=== PATIENT | male | born 1945 | race African-American/Black ===

== ENCOUNTER 2025-08-06 10:01 | Outpatient (OUT) | payer MEDICARE, SELFPAY ==
--- OUTSIDE RECORDS SUMMARY | 2024-11-10 05:45 | XMS_ITS ---
Author Organization [facility] vices Address [address] [place] [id number] Care Team Providers Care Applications Manager Name Role Phone Donald Safia Unavailable [phone] REASON FOR VISIT Recall (A) (78) Social History Sex Assigned At : Social History Observation Description Sex Assigned At Male Encounters Encounter Location Date Provider Diagnosis [facility] [address] [place] [phone] 11/10/2024 Safia Bennett Plan Of Treatment No Information Progress Notes * Paco MACKDOB:1945 (80 yo M)Acc No.[id number]:11/10/2024 Dental Note Patient: Paco BURKS :?Safia Bennett DDSDOB:1945???Age:79 Y ???Sex:MaleDate:11/10/2024Phone:[phone]:[address] [place], [place] [id number] Subjective: * Chief Complaints: * 1 . Recall (A) (78). * Medical History: Objective: * Vitals: Assessment: Plan: * Treatment: * Billing Information: * Visit Code: * Procedure Codes: * Electronic signature of Safia Bennett DDS on 08/06/2025 at 10:06 AM EST Sign off status: Pending * Provider: Ari Bennett DDS Date: 0 11/10/2024 Generated for Printing/Faxing/eTransmitting on:?08/06/2025 10:06 AM EST
--- OUTSIDE RECORDS SUMMARY | 2025-05-14 03:45 | XMS_ITS ---
Author Organization [facility] vices Address [address] [place] [phone] Care Team Providers Care Sieve Grader Tender Name Role Phone Donald Safia Unavailable [phone] REASON FOR VISIT Recall (A) (78) Social History Sex Assigned At : Social History Observation Description Sex Assigned At Male Encounters Encounter Location Date Provider Diagnosis [facility] [address] [place], [place] [phone] 05/14/2025 Safia Bennett Plan Of Treatment No Information Progress Notes * Paco MACKDOB:1945 (80 yo M)Acc No.[id number]:05/14/2025 Patient:Paco TRAN :?Safia Bennett DDSDOB:1945???Age:79 Y ???Sex:MaleDate:05/14/2025Phone:[phone]:[address] [place], [place] [id number] Subjective: * Chief Complaints: * 1 . Recall (A) (78). * Medical History: Objective: * Vitals: Assessment: Plan: * Treatment: * Billing Information: * Visit Code: * Procedure Codes: * Electronic signature of Safia Bennett DDS on 08/06/2025 at 10:06 AM EST Sign off status: Pending * Provider: Ari Bennett DDS Date: 0 05/14/2025 Generated for Printing/Faxing/eTransmitting on:?08/06/2025 10:06 AM EST
--- OUTSIDE RECORDS SUMMARY | 2025-08-06 10:06 | XMS_ITS | Patient Health Record ---
Author Organization [facility] Address [address] [place] [phone] Care Team Providers Care Camp Boss Name Role Phone Safia Bennett Unavailable [phone] Allergies Allergen (clinical drug ingredient) Drug/Non Drug Allergy documented on EMR Reaction Allergy Type Onset Date Status seasonal (uncoded)UnknownAllergyActive Reason For Referral No Information Medications Medication SIG (Take, Route, Frequency, Duration) Notes Start Date End Date Status Jardiance ActiveIbuprofenNot-TakingEdarbyclor 40-12.5 MG1 tablet Orally Once a day Not-TakingMontelukast SodiumActiveamLODIPine BesylateActiveRybelsusActive FamotidineNot-TakingLevothyroxine SodiumNot-TakingAtorvastatin CalciumActive SynthroidActiveAzelastine HClNot-TakingmetFORMIN HClNot-TakingBystolicActive RamiprilNot-TakingNebivolol HClNot-Taking Social History Tobacco Use: Social History Observation Description Date Details (start date - stop date) Never Smoker NA - NA Sex Assigned At : Social History Observation Description Sex Assigned At Male Tobacco Control (Standard) Question Answer Notes Tobacco use: Nonsmoker Vital Signs Heart Rate 76 /min 11/05/2024 Blood pressure xwjmnxtfa32 mm Hg11/05/2024Weight-kg108.86 kg11/05/20241368Dcwvrl91 in11/05/2024lood pressure vyhovlob788 mm Hg11/05/20244692Xkrubw839 lbs11/05/2024MI 36.49 kg/m211/05/2024 Encounters Encounter Location Date Provider Diagnosis [facility] [address] [place], [place] [phone] 10/22/2024 Safia Donald [facility] K 02.62 [facility] [address] [place], [place] [phone] 11/05/2024 Safia Bennett Encounter for dent al examination and cleaning with abnormal findings Z01.21 Assessments Encounter Date Diagnosis (ICD Code) Assessment Notes Treatment Notes Treatment Clinical Notes Section Notes 10/22/2024 [facility] dentin (ICD-10 - K02.6 2) 11/05/2024Encounter for dental examination and cleaning with abnormal findings (ICD-10 - Z01.21) Plan Of Treatment No Information Insurance Providers Payer Name Payer Address Payer Phone Subscriber Number Group Number Insured Name Patient Relationship to Insured Coverage Start Date Coverage End Date [place]et[place] [address] [address] [place] [address] [id number] Ivory Callahan Spouse - patient is the spouse of the insured
--- OUTSIDE RECORDS SUMMARY | 2025-08-06 10:06 | XMS_ITS | Clinical Summary ---
Author Organization [facility] Address [address] [place] [address] Care Team Providers Care Port Traffic Manager Name Role Phone Unavailable Primary Care Provider Unavailabl e Allergies No known active allergies Medications MedicationSigDispense QuantityRefillsLast FilledStart DateEnd DateStatus amLODIPine-olmesartan (Kana) 5-40 MG tablet Take 1 tablet by mouth Daily5Active atorvastatin (Lipitor) 20 MG tablet Take 20 mg by mouth Daily08/24/2024ctive Jardiance 25 MG Take 25 mg by mouth Daily09/16/2024ctive levothyroxine (Synthroid, Levoxyl) 175 MCG tablet Take 175 mcg by mouth DailyActive montelukast (Singulair) 10 MG tablet 09/18/2024ctive nebivolol (Bystolic) 20 MG tablet Take 20 mg by mouth DailyActive semaglutide (Rybelsus) 7 MG tablet RybelsusActive methylPREDNISolone (Medrol Dospak) 4 MG tablets Indications:Hallux rigidus of right footTake as directed on package. 21 tablet 5Active meloxicam (Mobic) 15 MG tablet Indications:Hallux rigidus of left foot,Arthralgia of left footTAKE 1 TABLET(15 MG) BY MOUTH DAILY 90 tablet 5Active Family History RelationNameStatusCommentsFatherDeceasedMotherDeceased Social History Tobacco UseTypesPacks/DayYears UsedDateSmoking Tobacco: Never Tobacco Cessation:Counseling Given: Not Answered Alcohol UseStandard Drinks/WeekCommentsNever0 (1 standard drink = 0.6 oz pure alcohol)Sex and Gender InformationValueDate RecordedSex Assigned at BirthMale 10/31/2024 2:08 PM ESTLegal PyaCutm2810/21/2024 10:42 AM ESTGender IdentityMale 10/31/2024 2:08 PM ESTSexual OrientationNot on file Last Filed Vital Signs Vital SignReadingTime TakenCommentsBlood Pressure--Pulse--Temperature-- Respiratory Rate--Oxygen Saturation--Inhaled Oxygen Concentration--Mlkbmt879 kg (230 lb)12/01/2024 9:52 AM OKVTrrdvj441.7 cm (5' 8 )12/01/2024 9:52 AM ESTBody Mass Index34.9712/01/2024 9:52 AM EST Plan of Treatment Health MaintenanceDue DateLast DoneCommentsPneumococcal Vaccine: 65+ Years (1 of 1 - PCV)1996COVID-19 Vaccine (2024- season), 06/21/2022, 01/02/2022, Additional history existsInfluenza Vaccine (#1) 06/01/2025 Insurance
--- NOTE | 2025-08-06 11:06 | PM.CN ---
Consult Note: HPI Data of Consult Patient: new to practice Consult date: 08/06/25 Requesting Physician: Varsha Noland NP Primary Care Provider: PRATIBHA DEUTSCH DO Consult Narrative Reason for consult: left hip OA Narrative: Paco Callahan a pleasant 80 year old male presents for evaluation of left hip OA. Patient noticing pain worsening over the last 1 year, especially while golfing. denies falls or injury. notes pain 2/10 at the moment but up to 9/10 with standing, walking, stairs, lifting, and golfing. Denies loss of bowel or bladder. denies numbness tingling weakness. pt has failed > 6 weeks of provider guided HEP from PCP, heat, ice, tylenol, celebrex, motrin. recent left hip xray reveals moderate OA and he is not interested in joint replacement surgery. cc:: CC: Varsha Noland NP Review of Systems ROS Musculoskeletal Reports: joint pain Exam Narrative Exam Narrative: elevated BP, denies headache chest pain nausea shortness of breath dizziness lightheadedness Constitutional Documenting provider has reviewed patient's vital signs: yes Common normals: no apparent distress, oriented x3 and alert General appearance: cooperative HENMT Common normals: normocephalic, hearing grossly normal bilaterally and moist oral mucous membranes Head and scalp: normocephalic Eye Common normals: PERRL Pupil: PERRL Neck & C-Spine Common normals: full ROM General: normal visual inspection Chest Common normals: inspection of chest normal Respiratory Common normals: normal respiratory effort, no retractions and no use of accessory muscles Back & Pelvis Lumbar spine/lower back: straight leg raise negative bilaterally; ROM not limited, no pain with ROM and no lumbar spinal tenderness Extremity Left lower extremity: hip joint Other: left hip moderate to severe pain with internal/external rotation strength 5/5 in BLE sensation intact BLE Neuro Common normals: oriented x3 Sensorium/orientation: alert Psych Common normals: mental status grossly normal, thought process normal, cooperative, affect normal, speech normal and activity/motor behavior normal Speech: normal speech Thought process: normal thought process Results Additional Findings Additional findings: If on a controlled substance or opioids, I have checked an [place]AR[place] report on this patient and there are no aberrancies noted in the prescribing history.??If on a controlled substance or opioid a drug screen was completed and reviewed within the last year, and if there has not been a drug screen completed we ordered one today to monitor higher risk, state monitored pain medication use. As part of providing excellent, safe, comprehensive care, the following was completed at our patient's visit: 1. A medication reconciliation and review to ensure accurate knowledge of current/active medications, including asking our patients to inform us about any zcxq-wzq-kouoivx medications or herbal remedies/nutritional supplements/alternative remedies. 2. A review to specifically ensure our patients have had annual screening for screening for depression, screening for tobacco use, and screening for unhealthy alcohol use. For concerning screenings had a discussion with the patient, provided patient education, and recommended follow-up with primary care provider when appropriate. If patient noted with a risk of falling, they received education on strength, gait, and balance training to prevent future risk of falling. Portions of this note may have been carried over from the previous visit and updated as appropriate. Please note this office utilizes paper charting in addition to the electronic medical record. A list of current medications, vitals, and PMH is available there as the clinical staff outside of myself do not have access to Home Inventory S[pecialists charting during the clinic day operations. As part of providing quality comprehensive care the current medications, vitals, and PMH were reviewed in the paper chart. Assessment and Plan Assessment and Plan (1) Osteoarthritis of left hip: (2) Left hip pain: Plan The patient has had over 3 months of moderate to severe left hip pain with functional impairment and inadequate response to conservative care including NSAIDS (unless there are contraindication such as concurrent blood thinners), multiple oral or topical pain medications, and home exercise program/physical therapy.? Patient has completed >6 weeks of guided home exercise program and/or formal physical therapy program without relief of their symptoms.? The Oswestry Disability Index was completed, and the patient scored a 11%.? proceed with left hip injection under fluoroscopy, risks vs benefits reviewed pt not finding benefit to celebrex, advised to stop due to shelter nsaid use risks and discuss further with PCP at this time defer additional medication management, can consider alternatives if patient fails to benefit from injection f/u 2 weeks after injection
== END 2025-08-06 10:02 | disposition home or self-care (01) ==
LOC: PM 10:03
PROVIDERS: PCP Internal Medicine; Visit Provider Nurse Practitioner
DX: M16.12 Unilateral primary osteoarthritis, left hip (principal); M25.552 Pain in left hip
CPT/HCPCS: G0463

== ENCOUNTER 2025-08-17 07:12 | Day surgery (SDC) | payer MEDICARE, SELFPAY ==
--- OUTSIDE RECORDS SUMMARY | 2025-08-17 07:17 | XMS_ITS | Clinical Summary ---
Author Organization [id number] [address] [place] [address] Care Team Providers Care Registered Radiographer Name Role Phone Flakita Carmona DO, Charles L Primary Care Provider Allergies No known active allergies Medications MedicationSigDispense QuantityRefillsLast FilledStart DateEnd DateStatus nebivolol (BYSTOLIC) 20 mg tablet Take 1 tablet (20 mg total) by mouth in the morning.Active metFORMIN (GLUCOPHAGE) 500 mg tablet Take 1 tablet (500 mg total) by mouth in the morning and 1 tablet (500 mg total) in the evening. Take with meals.Active levothyroxine (SYNTHROID, LEVOTHROID) 175 MCG tablet Take 1 tablet (175 mcg total) by mouth in the morning. 5 x week .Active aspirin 81 mg Take 1 tablet (81 mg total) by mouth in the morning.Active JARDIANCE 25 mg tablet tablet Take 0.5 tablets (12.5 mg total) by mouth in the morning.05/15/2023ctive montelukast (SINGULAIR) 10 mg tablet Take 1 tablet (10 mg total) by mouth nightly as needed.06/11/2023ctive famotidine (PEPCID) 40 mg tablet Take 1 tablet (40 mg total) by mouth nightly as needed for heartburn.06/11/2023 Active amLODIPine-olmesartan (JESSICA) 5-40 mg per tablet Take 1 tablet by mouth in the morning.08/20/2023ctive atorvastatin (LIPITOR) 20 mg tablet Take 1 tablet (20 mg total) by mouth in the morning.08/31/2023ctive TRELEGY ELLIPTA 200-62.5-25 mcg blister with device Inhale 1 puff as needed.09/14/2023ctive Active Problems No known active problems Immunizations ImmunizationAdministration DatesNext SwkZpxx7204/28/2018 Family History Medical HistoryRelationNameCommentsCirrhosisFatherof liverHeart attackMother Heart diseaseMotherRelationNameStatusCommentsFatherDeceasedMotherDeceased Social History Tobacco UseTypesPacks/DayYears UsedDateSmoking Tobacco: FormerCigarettesQuit: 1980Smokeless Tobacco: Never Tobacco Cessation:Counseling Given: Not Answered Comments:Social Smoker Alcohol UseStandard Drinks/WeekCommentsNot Currently0 (1 standard drink = 0.6 oz pure alcohol)ChildcareAnswerDate OsuonacuPnsezoldoYftvryp63/12/2019Employment AnswerDate GnhogaodVjeufhsyttNqppysk86/12/2019Hunger ScreeningAnswerDate RecordedWithin the past 12 months we worried whether our food would run out before we got money to buy more.Never True07/10/2023Food Insecurity - Inability Not on file07/10/2023urpose - LifeAnswerDate RecordedPurpose and direction in bbdeIbzdsim38/11/2021ex and Gender InformationValueDate RecordedSex Assigned at BirthNot on fileLegal XsvYuuh7405/06/2015 11:39 AM EDTGender IdentityNot on file Sexual OrientationNot on file Last Filed Vital Signs Vital SignReadingTime TakenCommentsBlood Zztrwmyi72/80011/12/2023 10:25 AM EST Ahpsd573011/12/2023 10:25 AM NTZZmatlabhauy69.2 ??C (98.9 ??F)11/12/2023 8:13 AM ESTRespiratory Yaht719811/12/2023 10:25 AM ESTOxygen Mslwkbptrt78%11/12/2023 10:25 AM ESTInhaled Oxygen Concentration--Jhcmcq069.5 kg (237 lb)11/12/2023 8:13 AM QZASeqfwm680.7 cm (5' 8 )11/12/2023 8:13 AM ESTBody Mass Index36.04011/12/2023 8:13 AM EST Plan of Treatment Health MaintenanceDue DateLast DoneCommentsDepression Ompktfouf49/13/1958Fall Risk Anuukdwlf73/13/2011RSV ( or age 60+ yrs) (1 - 1-dose 75+ series) 2021Tobacco Avgggnoyb96OVID-19 Vaccine (2024- season), 06/21/2022, 01/02/2022, Additional history exists Influenza Dmzvebr1406/01/2025DTaP,Tdap and Td Vaccines (2 - Td or Tdap)04/28/2028 04/28/20186666Nubpxriuktg57, 11/12/2023, 11/12/2023Zoster (Shingles) FzphxuiUvuchpaag81/04/2021, 03/01/2021 Medical Devices Not on file Procedures Procedure NamePriorityDate/TimeAssociated DiagnosisCommentsPROVATION COLONOSCOPY Objkjkd3411/12/2023 8:57 AM EST from Last 3 Months or Most Recently Relevant to Health Maintenance Results * Colonoscopy Report (11/12/2023 8:57 AM EST)Specimen (Source)Anatomical Location / LateralityCollection Method / VolumeCollection TimeReceived Time Narrative SYSTEMGENERATED, DOCUMENTATION - 11/12/2023 8:57 AM EST This order has been auto-finalized for image and report archival in PACs. *For full report details, please reach out to your physician. ??This image is visible to you in MyChart.* Authorizing ProviderResult TypeResult StatusMichael E Grillis DOIMG OR IMG ORDERABLESFinal Result from Last 3 Months or Most Recently Relevant to Health Maintenance Insurance * Guarantor: Paco Callahanccmoisés TypeRelation to PatientDate of PhoneBilroane general hospital AddressWorkers WpehQhqc[address] [place] [id number] Care Teams Team MemberRelationshipSpecialtyStart DateEnd Date Abiel Boggs Jr., [address] [place] [id number] PCP - GeneralInternal Medicine04/28/18
--- OUTSIDE RECORDS SUMMARY | 2025-08-17 07:17 | XMS_ITS | Clinical Summary ---
Author Organization [facility] Address [address] [place] [address] Care Team Providers Care Diesel Powerplant Mechanic Name Role Phone Unavailable Primary Care Provider Unavailabl e Social History Tobacco UseTypesPacks/DayYears UsedDateSmoking Tobacco: Never AssessedSex and Gender InformationValueDate RecordedSex Assigned at BirthNot on fileLegal Sex Male11/03/2012 11:56 AM ESTGender IdentityNot on fileSexual OrientationNot on file Plan of Treatment Health MaintenanceDue DateLast DoneCommentsHEPATITIS C VIRUS MSEDOQNVM1945 ZCUOKQA90 1945TDAP (ADULT)1965COLORECTAL CANCER SCREENING DISCUSSION 1991PNEUMOCOCCAL VACCINE SERIES (1 of 1 - PCV)1996ZOSTER (SHINGLES) VACCINE (1 of 2)1996RSV VACCINE (1 - 1-dose 75+ series)2021OVID-19 VACCINE ( - 2024- season)2025INFLUENZA VACCINE (#1)2025HEP B VACCINEAged OutNo longer eligible based on patient's age to complete this topic
--- OUTSIDE RECORDS SUMMARY | 2025-08-17 07:17 | XMS_ITS | Clinical Summary ---
Author Organization [facility] Address [address] [place] [address] Care Team Providers Care Marquetry Worker Name Role Phone Unavailable Primary Care Provider [...] Assigned at BirthMale 10/31/2024 2:08 PM ESTLegal UytDhxz2410/21/2024 10:42 AM ESTGender IdentityMale 10/31/2024 2:08 PM ESTSexual OrientationNot on file Last Filed Vital Signs Vital SignReadingTime TakenCommentsBlood Pressure--Pulse--Temperature-- Respiratory Rate--Oxygen Saturation--Inhaled Oxygen Concentration--Shoetx555 kg (230 lb)12/01/2024 9:52 AM YDZVcabhi939.7 cm (5' 8 )12/01/2024 9:52 AM ESTBody Mass Index34.9712/01/2024 9:52 AM EST Plan of Treatment Health MaintenanceDue DateLast DoneCommentsPneumococcal Vaccine: 65+ Years (1 of 1 - PCV)1996COVID-19 Vaccine (2024- season), 06/21/2022, 01/02/2022, Additional history existsInfluenza Vaccine (#1) 06/01/2025 Insurance
--- OUTSIDE RECORDS SUMMARY | 2025-08-17 07:17 | XMS_ITS | Clinical Summary ---
Author Organization [facility] Address [address] [place] [address] Care Team Providers Care Battery Engineer Name Role Phone Flakita Carmona DO, Charles Lewis Primary Care Provi cameron Allergies No known active allergies Medications MedicationSigDispense QuantityRefillsLast FilledStart DateEnd DateStatus ramipril (ALTACE) 10 mg capsule 20 mg once daily.12/31/2014ctive metFORMIN (GLUCOPHAGE) 500 mg tablet Take 500 mg by mouth twice daily with meals.Active levothyroxine (SYNTHROID) 175 mcg tablet Take 175 mcg by mouth. Daily mon-friActive aspirin, enteric coated (ASPIRIN, ENTERIC COATED) 81 mg EC tablet Take 81 mg by mouth once daily.Active amLODIPine-Atorvastatin (CADUET) 10-20 mg per tablet Take 1 tablet by mouth once daily.Active nebivolol (BYSTOLIC) 20 mg tab Indications:History of prostate cancerTake by mouth once daily.Active CHOLECALCIFEROL, VITAMIN D3, (VITAMIN D3 ORAL) Indications:History of prostate cancerTake by mouth.Active Active Problems ProblemNoted DateDiagnosed DateHistory of prostate yagduj3003/17/2015 Social History Tobacco UseTypesPacks/DayYears UsedDateSmoking Tobacco: FormerSmokeless Tobacco: FormerQuit: 03/17/1985Alcohol UseStandard Drinks/WeekCommentsNo0 (1 standard drink = 0.6 oz pure alcohol)Sex and Gender InformationValueDate RecordedSex Assigned at BirthNot on fileLegal KcuVtik08/02/2012 10:13 AM ESTGender Identity Not on fileSexual OrientationNot on file Last Filed Vital Signs Vital SignReadingTime TakenCommentsBlood Pressure--Pulse--Temperature-- Respiratory Rate--Oxygen Saturation--Inhaled Oxygen Concentration--Qpodst229.9 kg (249 lb)03/17/2015 2:07 PM EDTHeight--Body Mass Index-- Plan of Treatment Health MaintenanceDue DateLast DoneCommentsAnxiety Iquhbmofn95/13/1964Depression Pbmonldrp59/13/1964DTaP,Tdap,Td Vaccine (1 - Tdap)1965Diabetes Screening 1991Pneumococcal Vaccine: 50+ (1 of 1 - PCV)1996Shingrix Vaccine (1 of 2)1996RSV Vaccine (1 - 1-dose 75+ series)2021dvance Directive Vqdoqbhxtz55/01/2025ovid-19 Vaccine (1 - 2024- season)2025Influenza Vaccine (#1)2025 Insurance Care Teams Team MemberRelationshipSpecialtyStart DateEnd Date Abiel Boggs Jr., DO [facility] [place] [id number] PCP - GeneralInternal Medicine03/19/12
[2025-08-17 07:35] VITALS: BP 194/87; PULSE 87; TEMP 36.8; O2SAT 98
[2025-08-17 08:14] VITALS: BP 192/81; PULSE 82; O2SAT 100
[2025-08-17 08:15] VITALS: BP 176/79; PULSE 82; O2SAT 100
[2025-08-17] MEDS: BUPIVACAINE HCL 0.25% PF 25 MG/10 ML VIAL 4 ML INJ (08:15)
[2025-08-17] MEDS: IOHEXOL 240 MG/ML - 10 ML VIAL 24 MG INJ (08:15)
[2025-08-17] MEDS: LIDOCAINE HCL 2% 400 MG/20 ML MDV INJ (08:16)
[2025-08-17] MEDS: METHYLPREDNISOLONE ACETATE 40 MG/ML VIAL INJ (08:16)
--- NOTE | 2025-08-17 08:17 | W.PM.PROCNOT ---
Date of procedure: 08/17/25 Pre-op diagnosis: Pain due to left hip osteoarthritis Post-op diagnosis: same as pre-op Procedure: Procedure: Left hip injection Medications: Bupivacaine 0.25% 3cc, depomedrol 40mg I explained the details of the procedure to the patient including the risks, benefits and alternatives. We had an informed discussion and the patient verbalized understanding and signed the consent form. All questions were answered appropriately.? A time out was performed.? After obtaining a comfortable supine position, the skin overlying the hip, subtrochanteric region, and joint space were prepped with alcohol. A sterile syringe containing the above medication was attached to a 25 guage, 3.5 inch spinal needle under strict aseptic technique. X ray was used to identify the joint space and the femoral neck on the left side.? The needle was than advanced through the subcutaneous tissue after local injection of 1% lidocaine.? The contents of the syringe were gently injected without any resistance into the joint space after contrast (isovue) outlined the appropriate area. The needle was removed and pressure was applied to the injection site to decrease the incidence of ecchymosis and hematoma formation.? A sterile bandage was applied. Post procedural instructions were given to the patient. Anesthesia: Local Surgeon: Mulugeta Triplett Pathology: none sent Condition: stable Disposition: no change
== END 2025-08-17 08:21 | disposition home or self-care (01) ==
PROVIDERS: PCP Internal Medicine; Visit Provider Anesthesiology
DX: M16.12 Unilateral primary osteoarthritis, left hip (principal); M25.552 Pain in left hip; E11.9 Type 2 diabetes mellitus without complications
CPT/HCPCS: 20610; 36415; 77002; 82948; J0665; J1010; Q9966

== ENCOUNTER 2025-08-26 07:45 | Outpatient (OUT) | payer MEDICARE, SELFPAY ==
--- OUTSIDE RECORDS SUMMARY | 2025-08-26 07:50 | XMS_ITS | Patient Health Record ---
Author Organization [facility]ices Address [address] [place], [place] [id number] Care Team Providers Care Unit Secretary Name Role Phone Safia Bennett Unavailable [phone] Allergies Allergen (clinical drug ingredient) Drug/Non Drug Allergy documented on EMR Reaction Allergy Type Onset Date Status seasonal (uncoded)UnknownAllergyActive Reason For Referral No Information Medications Medication SIG (Take, Route, Frequency, Duration) Notes Start Date End Date Status Jardiance ActiveIbuprofenNot-Taking/PRNEdarbyclor 40-12.5 MG Tablet1 tablet Orally Once a dayNot-Taking/PRNMontelukast SodiumActiveamLODIPine BesylateActiveRybelsusActive FamotidineNot-Taking/PRNLevothyroxine SodiumNot-Taking/PRNAtorvastatin Calcium ActiveSynthroidActiveAzelastine HClNot-Taking/PRNmetFORMIN HClNot-Taking/PRN BystolicActiveRamiprilNot-Taking/PRNNebivolol HClNot-Taking/PRN Social History Tobacco Use: Social History Observation Description Date Details (start date - stop date) Never Smoker NA - NA Sex Assigned At : Social History Observation Description Sex Assigned At Male Social History Tobacco Use:Social InfoQuestionAnswerNotesTobacco Control (Standard)Tobacco use: Nonsmoker Vital Signs Heart Rate 76 /min 11/05/2024 Blood pressure nrvhpxfka81 mm Hg11/05/2024Weight-kg108.86 kg11/05/20247009Sjwpnm63 in11/05/2024lood pressure yybirkzq848 mm Hg11/05/20241379Hhfycg494 lbs11/05/2024MI 36.49 kg/m211/05/2024 Encounters Encounter Location Date Provider Diagnosis [facility] [address] [place] [phone] 10/22/2024 Safia Bennett [facility] [address] [place] [phone] 11/05/2024 Safia Bennett Encounter for dent al [...] Start Date Coverage End Date DMetlife [address] [address] [place] [address] [phone] [id number] Ivory Callahan Spouse - patient is the spouse of the insured 2
--- OUTSIDE RECORDS SUMMARY | 2025-08-26 07:50 | XMS_ITS | Clinical Summary ---
Author Organization [facility] Address [address] [place] [address] Care Team Providers Care Knitter Wire Mesh Name Role Phone Flakita Carmona DO, Charles [...] Active Problems ProblemNoted DateDiagnosed DateHistory of prostate wdyuzn5703/17/2015 Social History Tobacco UseTypesPacks/DayYears UsedDateSmoking Tobacco: FormerSmokeless Tobacco: FormerQuit: 03/17/1985Alcohol UseStandard Drinks/WeekCommentsNo0 (1 standard drink = 0.6 oz pure alcohol)Sex and Gender InformationValueDate RecordedSex Assigned at BirthNot on fileLegal PxvWgty90/02/2012 10:13 AM ESTGender Identity Not on fileSexual OrientationNot on file Last Filed Vital Signs Vital SignReadingTime TakenCommentsBlood Pressure--Pulse--Temperature-- Respiratory Rate--Oxygen Saturation--Inhaled Oxygen Concentration--Qtibzg529.9 kg (249 lb)03/17/2015 2:07 PM EDTHeight--Body Mass Index-- Plan of Treatment Health MaintenanceDue DateLast DoneCommentsAnxiety Htoplysqz72/13/1964Depression Xlxxonref91/13/1964DTaP,Tdap,Td Vaccine (1 - Tdap)1965Diabetes Screening 1991Pneumococcal Vaccine: 50+ (1 of 1 - PCV)1996Shingrix Vaccine (1 of 2)1996RSV Vaccine (1 - 1-dose 75+ series)2021dvance Directive Kwccapmwae04/01/2025ovid-19 Vaccine (1 - 2024- season)2025Influenza Vaccine (#1)2025 Insurance Care Teams Team MemberRelationshipSpecialtyStart DateEnd Date Abiel Boggs Jr., DO [facility] [place] [phone] PCP - GeneralInternal Medicine03/19/12
--- OUTSIDE RECORDS SUMMARY | 2025-08-26 07:50 | XMS_ITS | Clinical Summary ---
Author Organization [facility] Address [address] [place] [address] Care Team Providers Care Furniture Packer Name Role Phone Unavailable Primary Care Provider Unavailabl e Social History Tobacco UseTypesPacks/DayYears UsedDateSmoking Tobacco: Never AssessedSex and Gender InformationValueDate RecordedSex Assigned at BirthNot on fileLegal Sex Male11/03/2012 11:56 AM ESTGender IdentityNot on fileSexual OrientationNot on file Plan of Treatment Health MaintenanceDue DateLast DoneCommentsHEPATITIS C VIRUS YYQSYVMDS1945 PNSLIFH14 1945TDAP (ADULT)1965COLORECTAL CANCER SCREENING DISCUSSION 1991PNEUMOCOCCAL VACCINE SERIES (1 of 1 - PCV)1996ZOSTER (SHINGLES) VACCINE (1 of 2)1996RSV VACCINE (1 - 1-dose 75+ series)2021OVID-19 VACCINE (1 - season)2025INFLUENZA VACCINE (#1)2025HEP B VACCINEAged OutNo longer eligible based on patient's age to complete this topic
--- OUTSIDE RECORDS SUMMARY | 2025-08-26 07:50 | XMS_ITS | Clinical Summary ---
Author Organization [facility] Address [id number] [place] [address] Care Team Providers Care Gravel Inspector Name Role Phone Flakita Carmona DO, Charles [...] No known active problems Immunizations ImmunizationAdministration DatesNext CpkAaei6404/28/2018 Family History Medical HistoryRelationNameCommentsCirrhosisFatherof liverHeart attackMother Heart diseaseMotherRelationNameStatusCommentsFatherDeceasedMotherDeceased Social History Tobacco UseTypesPacks/DayYears UsedDateSmoking Tobacco: FormerCigarettesQuit: 1980Smokeless Tobacco: Never Tobacco Cessation:Counseling Given: Not Answered Comments:Social Smoker Alcohol UseStandard Drinks/WeekCommentsNot Currently0 (1 standard drink = 0.6 oz pure alcohol)ChildcareAnswerDate LezjamuoNjqsypgnkBblmwrf16/12/2019Employment AnswerDate PauscsznHicajjtlriAkedaat75/12/2019Hunger ScreeningAnswerDate RecordedWithin the past 12 months we worried whether our food would run out before we got money to buy more.Never True07/10/2023Food Insecurity - Inability Not on file07/10/2023urpose - LifeAnswerDate RecordedPurpose and direction in lyetVfgjfsm94/11/2021ex and Gender InformationValueDate RecordedSex Assigned at BirthNot on fileLegal YjjSnjp8005/06/2015 11:39 AM EDTGender IdentityNot on file Sexual OrientationNot on file Last Filed Vital Signs Vital SignReadingTime TakenCommentsBlood Sneawwgq94/80011/12/2023 10:25 AM EST Hvifa655211/12/2023 10:25 AM YJRIhmroxrnrqt79.2 ??C (98.9 ??F)11/12/2023 8:13 AM ESTRespiratory Gojy836911/12/2023 10:25 AM ESTOxygen Lgrjzplyiu31%11/12/2023 10:25 AM ESTInhaled Oxygen Concentration--Rbhmgg677.5 kg (237 lb)11/12/2023 8:13 AM MUDKnwlws201.7 cm (5' 8 )11/12/2023 8:13 AM ESTBody Mass Index36.04011/12/2023 8:13 AM EST Plan of Treatment Health MaintenanceDue DateLast DoneCommentsDepression Akdjhxaoh19/13/1958Fall Risk Ygjobdupt94/13/2011RSV ( or age 60+ yrs) (1 - 1-dose 75+ series) 2021Tobacco Akhrxqglu51OVID-19 Vaccine (2024- season), 06/21/2022, 01/02/2022, Additional history exists Influenza Yzhxahi8906/01/2025DTaP,Tdap and Td Vaccines (2 - Td or Tdap)04/28/2028 04/28/20185066Bwtzifsfgkw96, 11/12/2023, 11/12/2023Zoster (Shingles) ZvokfcdOizooinyf07/04/2021, 03/01/2021 Medical Devices Not on file Procedures Procedure NamePriorityDate/TimeAssociated DiagnosisCommentsPROVATION COLONOSCOPY Qqdmkqw1011/12/2023 8:57 AM EST from Last 3 Months [...] Guarantor: Paco Callahanccmoisés TypeRelation to PatientDate of PhoneBilwyoming general hospital AddressWorkers XhsfPasg[address] [place] [address] Care Teams Team MemberRelationshipSpecialtyStart DateEnd Date Abiel Boggs Jr., [address] [place] [id number] PCP - GeneralInternal Medicine04/28/18
--- OUTSIDE RECORDS SUMMARY | 2025-08-26 07:50 | XMS_ITS | Clinical Summary ---
Author Organization [facility] Healthcare Address [address] [place] [address] Care Team Providers Care Waistband Setter Name Role Phone Unavailable Primary Care Provider [...] Assigned at BirthMale 10/31/2024 2:08 PM ESTLegal ZqmIcob9710/21/2024 10:42 AM ESTGender IdentityMale 10/31/2024 2:08 PM ESTSexual OrientationNot on file Last Filed Vital Signs Vital SignReadingTime TakenCommentsBlood Pressure--Pulse--Temperature-- Respiratory Rate--Oxygen Saturation--Inhaled Oxygen Concentration--Pptcdx567 kg (230 lb)12/01/2024 9:52 AM BCMYirgzk908.7 cm (5' 8 )12/01/2024 9:52 AM ESTBody Mass Index34.9712/01/2024 9:52 AM EST Plan of Treatment Health MaintenanceDue DateLast DoneCommentsPneumococcal Vaccine: 65+ Years (1 of 1 - PCV)1996COVID-19 Vaccine (2024- season), 06/21/2022, 01/02/2022, Additional history existsInfluenza Vaccine (#1) 06/01/2025 Insurance
--- NOTE | 2025-08-26 08:21 | PM.CN ---
Consult Note: HPI Data of Consult Patient: known to practice within the last 3 years Consult date: 08/26/25 Requesting Physician: Varsha Noland NP Primary Care Provider: PRATIBHA DEUTSCH DO Consult Narrative Reason for consult: left hip OA Narrative: Paco Callahan a pleasant 80 year old male presents for evaluation of left hip OA. Patient noticing pain worsening over the last 1 year, especially while golfing. denies falls or injury. notes pain 1/10 at the moment but up to 4/10 with standing, walking, stairs, lifting, and golfing. Denies loss of bowel or bladder. denies numbness tingling weakness. pt has failed > 6 weeks of provider guided HEP from PCP, heat, ice, tylenol, celebrex, motrin. recent left hip xray reveals moderate OA and he is not interested in joint replacement surgery at this time. on 08-17-25 he underwent a left hip injection with 80% improvement per patient. He still notes pain with long periods of sitting and limping when he stands until he stretches it out. cc:: CC: Varsha Noland NP Review of Systems ROS Musculoskeletal Reports: joint pain [facility] Medical History (Updated 08/11/25 @ 15:31 by Lindsey Westfall RN) Diabetes ?E11.9 - Type 2 diabetes mellitus without complications (ICD-10) Prostate CA ?C61 - Malignant neoplasm of prostate (ICD-10) HTN (hypertension) ?I10 - Essential (primary) hypertension (ICD-10) Meds Home Medications and Allergies Home Medications ?Medication ?Instructions ?Recorded ?Confirmed ?Type amlodipine 10 mg tablet 10 mg PO DAILY 08/06/25 08/17/25 History atorvastatin 20 mg tablet 20 mg PO DAILY 08/06/25 08/17/25 History celecoxib 200 mg capsule (Celebrex) 200 mg PO DAILY 08/06/25 08/17/25 History levothyroxine 175 mcg tablet 175 mcg PO DAILY 08/06/25 08/17/25 History (Synthroid) montelukast 10 mg tablet 10 mg PO DAILY 08/06/25 08/17/25 History nebivolol 20 mg tablet (Bystolic) 20 mg PO DAILY 08/06/25 08/17/25 History famotidine 40 mg tablet (Pepcid) 40 mg PO DAILY 08/17/25 08/17/25 History Allergies Allergy/AdvReac Type Severity Reaction Status Date / Time No Known Drug Allergies Allergy Verified 08/17/25 07:37 Exam Narrative Exam Narrative: elevated BP, denies headache chest pain nausea shortness of breath dizziness lightheadedness Constitutional Documenting provider has reviewed patient's vital signs: yes Common normals: no apparent distress, oriented x3 and alert General appearance: cooperative HENMT Common normals: normocephalic, hearing grossly normal bilaterally and moist oral mucous membranes Head and scalp: normocephalic Eye Common normals: PERRL Pupil: PERRL Neck & C-Spine Common normals: full ROM General: normal visual inspection Chest Common normals: inspection of chest normal Respiratory Common normals: normal respiratory effort, no retractions and no use of accessory muscles Back & Pelvis Lumbar spine/lower back: straight leg raise negative bilaterally; ROM not limited, no pain with ROM and no lumbar spinal tenderness Extremity Left lower extremity: hip joint Other: left hip little to no pain with internal/external rotation. significant improvement from prior exam strength 5/5 in BLE sensation intact BLE Neuro Common normals: oriented x3 Sensorium/orientation: alert Psych Common normals: mental status grossly normal, thought process normal, cooperative, affect normal, speech normal and activity/motor behavior normal Speech: normal speech Thought process: normal thought process Results Additional Findings Additional findings: If on a controlled substance or opioids, I have checked an [place]AR[place] report on this patient and there are no aberrancies noted in the prescribing history.??If on a controlled substance or opioid a drug screen was completed and reviewed within the last year, and if there has not been a drug screen completed we ordered one today to monitor higher risk, state monitored pain medication use. As part of providing excellent, safe, comprehensive care, the following was completed at our patient's visit: 1. A medication reconciliation and review to ensure accurate knowledge of current/active medications, including asking our patients to inform us about any ahnw-pyq-rwghekp medications or herbal remedies/nutritional supplements/alternative remedies. 2. A review to specifically ensure our patients have had annual screening for screening for depression, screening for tobacco use, and screening for unhealthy alcohol use. For concerning screenings had a discussion with the patient, provided patient education, and recommended follow-up with primary care provider when appropriate. If patient noted with a risk of falling, they received education on strength, gait, and balance training to prevent future risk of falling. Portions of this note may have been carried over from the previous visit and updated as appropriate. Please note this office utilizes paper charting in addition to the electronic medical record. A list of current medications, vitals, and PMH is available there as the clinical staff outside of myself do not have access to [employer] charting during the clinic day operations. As part of providing quality comprehensive care the current medications, vitals, and PMH were reviewed in the paper chart. Assessment and Plan Assessment and Plan (1) Osteoarthritis of left hip: (2) Left hip pain: Plan The patient has had over 3 months of moderate to severe left hip pain with functional impairment and inadequate response to conservative care including NSAIDS (unless there are contraindication such as concurrent blood thinners), multiple oral or topical pain medications, and home exercise program/physical therapy.? Patient has completed >6 weeks of guided home exercise program and/or formal physical therapy program without relief of their symptoms.? The Oswestry Disability Index was completed, and the patient scored a 10%.? left hip injection providing significant relief in pain ongoing. at this time we will refer to orthopedics for evaluation and to establish care in preparation of future surgical internveion patient continues to have HTN, following with PCP for medication management. I have advised him to discuss stopping celebrex with his pcp as he does not find benefit and i am concerned about NSAID use with his HTN. pt denies chest pain, SOB, headaches, nausea, dizziness. denies GI bleeding. f/u 3 months, sooner if needed
== END 2025-08-26 07:46 | disposition home or self-care (01) ==
LOC: PM 07:46
PROVIDERS: PCP Internal Medicine; Visit Provider Nurse Practitioner
DX: M16.12 Unilateral primary osteoarthritis, left hip (principal); M25.552 Pain in left hip
CPT/HCPCS: G0463

== ENCOUNTER 2025-09-21 08:11 | Outpatient (OUT) | payer MEDICARE, SELFPAY ==
--- NOTE | 2025-09-21 | XR_ITS ---
The [address] [address] Patient Name: YOSSI MACK MRN: [id number] date: 1945 Sex: M Assigned Patient Location: [facility] Current Patient Location: [facility] Accession/Order Number: [id number] Exam Date: 09/21/2025 09:35 Report Date: 09/21/2025 10:30 At the request of: CHAVO NICK DO Procedure: XR hip LT 1V w/ pelvis AP WEIGHTBEARING PELVIS WITH LEFT HIP - 2 views COMPARISON: None CLINICAL DATA: Left hip pain for the past 6 months. No injury. Weightbearing AP view the pelvis and frog-lateral view of the left hip were obtained. There is osteopenia. There is no acute fracture or dislocation. There is loss of left hip joint space with subchondral sclerosis, cystic change and hypertrophy. There is also minor hypertrophy at the right hip. There are enthesophytes at the iliac crests. 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 There is degenerative change at the lower imaged lumbar spine and pubic symphysis. No soft tissue abnormalities are noted. XR/XR hip LT 1V w/ pelvis IMPRESSION: DEGENERATIVE CHANGES, GREATEST AT THE LEFT HIP. Impression dictated by: Vivi Plata M.D. 09/21/2025 10:30 AM Dictation Location: [place] [address] Electronically authenticated by: [id number] Y Date: 09/21/2025 10:30
--- OUTSIDE RECORDS SUMMARY | 2025-09-21 08:13 | XMS_ITS | Clinical Summary ---
Author Organization [facility] Healthcare Address [address] [place] [address] Care Team Providers Care Retail Marketing Manager Name Role Phone Unavailable Primary Care [...] Assigned at BirthMale 10/31/2024 2:08 PM ESTLegal WinBhvs7810/21/2024 10:42 AM ESTGender IdentityMale 10/31/2024 2:08 PM ESTSexual OrientationNot on file Last Filed Vital Signs Vital SignReadingTime TakenCommentsBlood Pressure--Pulse--Temperature-- Respiratory Rate--Oxygen Saturation--Inhaled Oxygen Concentration--Dkodvi258 kg (230 lb)12/01/2024 9:52 AM LJGHstxvd818.7 cm (5' 8 )12/01/2024 9:52 AM ESTBody Mass Index34.9712/01/2024 9:52 AM EST Plan of Treatment Health MaintenanceDue DateLast DoneCommentsPneumococcal Vaccine: 65+ Years (1 of 1 - PCV)1996COVID-19 Vaccine (2024- season), 08/21/2023, 06/21/2022, Additional history existsInfluenza Vaccine (#1) 06/01/2025 Insurance
--- OUTSIDE RECORDS SUMMARY | 2025-09-21 08:13 | XMS_ITS | Clinical Summary ---
Author Organization [facility] Address [address] [place] [address] Care Team Providers Care Rat Breeder Name Role Phone Flakita Carmona DO, Charles [...] Active Problems ProblemNoted DateDiagnosed DateHistory of prostate ylbaji1003/17/2015 Social History Tobacco UseTypesPacks/DayYears UsedDateSmoking Tobacco: FormerSmokeless Tobacco: FormerQuit: 03/17/1985Alcohol UseStandard Drinks/WeekCommentsNo0 (1 standard drink = 0.6 oz pure alcohol)Sex and Gender InformationValueDate RecordedSex Assigned at BirthNot on fileLegal BftGxvx47/02/2012 10:13 AM ESTGender Identity Not on fileSexual OrientationNot on file Last Filed Vital Signs Vital SignReadingTime TakenCommentsBlood Pressure--Pulse--Temperature-- Respiratory Rate--Oxygen Saturation--Inhaled Oxygen Concentration--Zpaynt261.9 kg (249 lb)03/17/2015 2:07 PM EDTHeight--Body Mass Index-- Plan of Treatment Health MaintenanceDue DateLast DoneCommentsAnxiety Wfahiqumn70/13/1964Depression Curcbyrie39/13/1964DTaP,Tdap,Td Vaccine (1 - Tdap)1965Diabetes Screening 1991Pneumococcal Vaccine: 50+ (1 of 1 - PCV)1996Shingrix Vaccine (1 of 2)1996RSV Vaccine (1 - 1-dose 75+ series)2021dvance Directive Indagupryc50/01/2025ovid-19 Vaccine (1 - 2024- season)2025Influenza Vaccine (#1)2025 Insurance Care Teams Team MemberRelationshipSpecialtyStart DateEnd Date Abiel Boggs Jr., DO [facility] [place] [id number] PCP - GeneralInternal Medicine03/19/12
--- OUTSIDE RECORDS SUMMARY | 2025-09-21 08:13 | XMS_ITS | Clinical Summary ---
Author Organization [facility] Address [address] [place] [address] Care Team Providers Care Hospital Unit Clerk Name Role Phone Unavailable Primary Care Provider Unavailabl e Social History Tobacco UseTypesPacks/DayYears UsedDateSmoking Tobacco: Never AssessedSex and Gender InformationValueDate RecordedSex Assigned at BirthNot on fileLegal Sex Male11/03/2012 11:56 AM ESTGender IdentityNot on fileSexual OrientationNot on file Plan of Treatment Health MaintenanceDue DateLast DoneCommentsHEPATITIS C VIRUS JPYZSOZGM1945 HNOMQRC90 1945TDAP (ADULT)1965COLORECTAL CANCER SCREENING DISCUSSION 1991PNEUMOCOCCAL VACCINE SERIES (1 of 1 - PCV)1996ZOSTER (SHINGLES) VACCINE (1 of 2)1996RSV VACCINE (1 - 1-dose 75+ series)2021OVID-19 VACCINE ( - 2024- season)2025INFLUENZA VACCINE (#1)2025HEP B VACCINEAged OutNo longer eligible based on patient's age to complete this topic
--- OUTSIDE RECORDS SUMMARY | 2025-09-21 08:13 | XMS_ITS | Patient Health Record ---
Author Organization [facility] Address [address] [place] [id number] Care Team Providers Care Project Coordinator Name Role Phone Safia Bennett Unavailable [phone] Allergies Allergen (clinical drug ingredient) Drug/Non Drug [...] Heart Rate 76 /min 11/05/2024 Blood pressure mm Hg11/05/2024Weight-kg108.86 kg11/05/20245106Pwozht71 in11/05/2024lood pressure olgnarwa968 mm Hg11/05/20245074Jtzcse787 lbs11/05/2024MI 36.49 kg/m211/05/2024 Encounters Encounter Location Date Provider Diagnosis [facility] [address], [place] [id number] 10/22/2024 Safia Bennett [facility] K 02.62 [facility] [address], [place] [id number] 11/05/2024 Safia Bennett Encounter for dent al [...] Start Date Coverage End Date [employer]et[employer] [address] [address] [place] [address] [id number] Ivory Callahan Spouse - patient is the spouse of the insured 2
== END 2025-09-21 08:12 | disposition home or self-care (01) ==
LOC: RAD 08:11
PROVIDERS: PCP Internal Medicine; Visit Provider Orthopaedic Surgery Orthopaedic Trauma
DX: M16.12 Unilateral primary osteoarthritis, left hip (principal)
CPT/HCPCS: 73501